=== PATIENT | female | born 1965 | race Hispanic/Latino ===

== ENCOUNTER 2021-08-11 16:18 | Emergency (ER) | payer SELFPAY ==
--- NOTE | ~2021-08-11 | XR_ITS ---
EXAMINATION: XR chest 2V DATE: 08/11/2021 17:19 INDICATION: Fever and body aches TECHNIQUE: PA and lateral views of the chest are obtained. COMPARISON: None available FINDINGS: The lungs are free of acute opacities. There is no pleural effusion or pneumothorax. The ca rdiomediastinal silhouette is normal. There is moderate thoracic spondylosis. IMPRESSION: 1. No acute cardiopulmonary abnormality. Reviewed, dictated and finalized at location A.
[2021-08-11 16:48] VITALS: BP 131/64; PULSE 79; RESP 14; TEMP 37.2; O2SAT 99
--- NOTE | 2021-08-11 16:51 | ECG_ITS ---
Measurements Intervals [place] Rate: 77 P: 31 TN: 171 QRS: -15 QRSD: 89 T: 28 QT: 347 QTc: 395 Interpretive Statements SINUS RHYTHM INCOMPLETE RIGHT BUNDLE BRANCH BLOCK BORDERLINE T WAVE ABNORMALITY- ANTERIOR LEADS BORDERLINE ECG Electronically Signed On 08-11-2021 17:02:45 CDT by Kory Barcenas D.O.
[2021-08-11 17:07] LABS: Basophils Percent Auto 0.3 % (0.2-1.2); Eosinophils Percent Auto 0.5 % (0-4.4); Hematocrit 42.9 % (37.0-47.0); Hemoglobin 14.6 g/dL (12.0-15.0); Immature Granulocyte Absolute 0.02 K/mm3 (0.00-0.031); Immature Granulocyte Percent A 0.3 % (0-0.5); Lymphocytes Absolute Auto 0.98 K/mm3 (0.9-3.2); Lymphocytes Percent Auto 16.2 % (18.3-44.2); Mean Corpuscular Hemoglobin 31.5 pg (26-34); Mean Corpuscular Volume 92.5 fl (80-100); Mean Platelet Volume 10.3 fl (7.4-10.4); Monocytes Absolute Auto 0.3 K/mm3 (0.1-0.6); Monocytes Percent Auto 4.5 % (2.6-8.5); Neutrophils Absolute Auto 4.7 K/mm3 (1.3-6.7); Neutrophils Percent Auto 78.2 % (45.5-73.1); Platelet Count Result 238 k/mm3 (150-375); Red Blood Count 4.64 M/mm3 (4.2-5.4); Red Cell Distribution Width 12.4 % (11.5-14.5); White Blood Count 6.1 K/mm3 (4.5-10.0)
[2021-08-11 17:18] LABS: INR 0.9; Prothrombin Time 12.1 Seconds (11.1-14.7)
[2021-08-11 17:19] LABS: Partial Thromboplastin Time 26.2 SECONDS (22.3-36.8)
[2021-08-11 17:26] LABS: Anion Gap 7 mmol/L (8-16); Blood Urea Nitrogen 9 mg/dL (7-17); Carbon Dioxide 28 mmol/L (22-30); Chloride 101 mmol/L (98-107); Estimated CRCL calculation 85 ml/min; Estimated Glomerular Filt Rate > 60; Glucose 122 mg/dL (65-110); Sodium 136 mmol/L (137-145)
[2021-08-11 17:38] LABS: Troponin I < 0.012 ng/mL (0.000-0.034)
[2021-08-11 17:43] VITALS: BP 135/80; PULSE 80; RESP 18; O2SAT 99
[2021-08-11] MEDS: LACTATED RINGERS 1,000 ML 999 ML IV CONT (18:27)
[2021-08-11] MEDS: PROCHLORPERAZINE EDISYLATE 10 MG/2 ML VIAL IV PUSH (18:27)
[2021-08-11] MEDS: KETOROLAC 30 MG/ML VIAL (*BKC) IV PUSH (18:27)
[2021-08-11 19:35] LABS: Add Urine Microscopic? NO; Appearance Urine Clear (Clear); Bilirubin Urine Negative (Negative); Blood Urine Negative (Negative); Color Urine Yellow (Yellow); Glucose Urine UA Negative (Negative); Ketones Urine Negative (Negative); Leukocyte Esterase Ur Negative LEU/UL (Negative); Nitrate Urine Negative (Negative); Protein Urine Negative (Negative); Specific Grav Ur 1.011 (1.001-1.035); Urobilinogen Urine Negative mg/dL (<2.0)
--- NOTE | 2021-08-11 19:51 | ED.HA ---
HPI - Headache General Chief Complaint: Headache Stated Complaint: FEVER, VOMITING, HERR Time Seen by Provider: 08/11/21 17:56 Source: patient Mode of arrival: ambulatory Limitations: no limitations History of Present Illness HPI Narrative: 56-year-old female Complains of a 1 day history of body aches, chills, headache, and subjective fevers No cough no shortness of breath She does not have nausea vomiting or diarrhea nor does she have dysuria or hematuria No neck pain, stiff neck and no sinus fullness or congestion or sore throat She has had a Covid vaccination Related Data Allergies Allergy/AdvReac Type Severity Reaction Status Date / Time No Known Allergies Allergy Verified 08/11/21 18:13 Review of Systems Review of Systems: All systems reviewed & are unremarkable except as noted in HPI and below Constitutional: Constitutional: Reports no additional constitutional complaints, Denies chills, Reports fatigue, Reports fever(s) and Denies headache(s) Eyes: Eyes: Reports no additional eye complaints, Denies change in vision and Denies photophobia ENT: Denies headache(s), Denies nasal congestion and Denies sore throat Cardiovascular: Cardiovascular: Denies chest pain and Denies dyspnea Respiratory: Respiratory: Denies cough and Denies dyspnea Gastrointestinal: Gastrointestinal: Denies abdominal pain, Denies diarrhea and Denies vomiting Genitourinary: Genitourinary: Denies hematuria, Denies urinary frequency and Denies dysuria Musculoskeletal: Musculoskeletal: Reports myalgias, Denies deformity, Denies arthralgias, Denies joint swelling and Denies numbness Integumentary/Breasts: Skin/Breast: Denies rash and Denies wounds Neurologic: Denies headache(s), Denies focal weakness and Denies numbness Psychiatric: Psychiatric: Reports no additional psychiatric complaints Endocrine: Endocrine: Reports no additional endocrine complaints Hematologic/Lymphatic: Hematologic/Lymphatic: Reports no additional hematologic/lymphatic complaints Allergic/Immunologic: Allergic/Immunologic: Reports no additional allergic/immunologic complaints Exam Const: General: cooperative, healthy appearing, no acute distress and alert Orientation/consciousness: patient oriented x3 (alert) HENMT: Head: normal to inspection, normocephalic, atraumatic, no contusions, no hematomas and no lacerations Ears: external ears normal and TM's normal bilaterally General nose exam: no epistaxis Throat: posterior oropharynx normal Other: Couple of pimples on the right cheek from rosacea Eyes: Conjunctivae: conjunctivae normal EOM: EOMs intact bilaterally Neck: Neck: normal visual inspection, no lymphadenopathy, supple and no JVD Other: Supple Resp: Effort & Inspection: normal respiratory effort and not labored Auscultation: clear to auscultation bilaterally and other (BS =) Cardio: Rate: regular rate Rhythm: regular rhythm Heart sounds: no murmurs GI: GI Palp: Yes Soft to palpation, No Tenderness to palpation present (GI), No Guarding due to palpation present (GI) and No Rebound tenderness present : General: Yes CVA tenderness (Right side) Skin: General skin exam: normal color and no rashes or lesions noted Neuro: General: patient oriented x3 (alert) and moves all extremities Speech: normal speech Extrem: General: normal to inspection and no pedal edema Psych: Affect: normal affect Course Course Emergency Course: Work-up unremarkable Much better after fluids and meds and reports that she feels fine and is ready to go Vital Signs Vital signs: Vital Signs Temperature 37.2 C 08/11/21 16:48 Pulse Rate 79 08/11/21 16:48 Respiratory Rate 14 08/11/21 16:48 Blood Pressure 131/64 08/11/21 16:48 Pulse Oximetry 99 08/11/21 16:48 Temperature 37.2 C 08/11/21 16:48 Pulse Rate 80 08/11/21 17:43 Respiratory Rate 18 08/11/21 17:43 Blood Pressure 135/80 08/11/21 17:43 Pulse Oximetry 99 08/11/21 17:43
[2021-08-11 21:15] VITALS: BP 140/76; PULSE 80; RESP 16; O2SAT 99
[2021-08-12 19:34] LABS: SARS-CoV-2 RNA PCR Negative
== END 2021-08-11 21:16 | disposition home or self-care (01) ==
PROVIDERS: Emergency Provider Emergency Medicine
DX: R51.9 Headache, unspecified (principal); B34.9 Viral infection, unspecified; Z20.822 Contact with and (suspected) exposure to COVID-19
CPT/HCPCS: 36415; 71046; 80048; 81003; 84484; 85025; 85610; 85730; 87804; 93005; 96361; 96374; 96375; 99284; C9803; J0780; J1885; J7120; U0003; U0005

== ENCOUNTER 2023-06-06 08:55 | Outpatient (CLI) | payer OTHER, SELFPAY ==
--- NOTE | ~2023-06-06 | MM_ITS ---
EXAMINATION: MM stereotactic bx LT, MM post biopsy diagnostic LT, MM stereotactic specimen LT DATE: 06/06/2023 10:50 (accession [id number]), 06/06/2023 10:51 (accession [id number]), 06/06 10:50 (accession [id number]) INDICATION: Indeterminate calcifications of the left breast. Stereotactic core biopsy is requested ev aluate for malignancy. TECHNIQUE AND FINDINGS: The risks and potential benefits of the procedure were discussed with the patient including bleeding and infection. A time out was performed to verify the patient's name, date of and site of proce dure to be performed. The patient was placed in the prone position with the left breast in lateral me dial compression, and the area of interest was localized and targeted utilizing digital imaging with stereotaxis. After sterile preparation of the skin, 2 cc of 1% lidocaine were utilized for local anesthesia at the skin puncture site and 15 of 1% lidocaine with epinephrine were utilized for deeper local anesthesia about the biopsy site. A 9G [employer] vacuum assisted biopsy needle was advanced to the level of the jeremias cification of interest from a lateral approach utilizing stereotactic guidance and a total of six tis claudia core biopsies were obtained. A specimen radiograph demonstrates that the calcifications of interest are included within the tissue cores. A tissue marker clip was then placed at the biopsy site. The needle was removed and hemostas is was achieved. A sterile bandage was applied. The patient tolerated procedure well and there was no evidence of immediate complication. The patient was given verbal instructions to return to the Emerg ency Department in the event of severe breast pain or rapid breast enlargement. Tissue cores were sub mitted to surgical pathology for histologic analysis. A 2-view left unilateral digital mammogram was obtained post procedure and this demonstrates that the tissue marker approximately 2 cm lateral to the calcifications of interest along the biopsy tract. IMPRESSION: 1. Successful stereotactic biopsy of calcifications in the upper outer quadrant of the left breast, f ollowed by tissue marker clip placement. Postbiopsy mammogram demonstrates the tissue marker approxim ately 2 cm lateral to the calcifications of interest along the biopsy tract. Reviewed, dictated and finalized at location A. IMPRESSION: 1. Successful stereotactic biopsy of calcifications in the upper outer quadrant of the left breast, followed by tissue marker clip placement. Postbiopsy mammo gram demonstrates the tissue marker approximately 2 cm lateral to the calcifica tions of interest along the biopsy tract. IMPRESSION: 1. Successful stereotactic biopsy of calcifications in the upper outer quadrant of the left breast, followed by tissue marker clip placement. Postbiopsy mammo gram demonstrates the tissue marker approximately 2 cm lateral to the calcifica tions of interest along the biopsy tract.
== END 2023-06-06 08:56 | disposition home or self-care (01) ==
PROVIDERS: Visit Provider Nurse Practitioner Family
DX: C50.412 Malignant neoplasm of upper-outer quadrant of left female breast (principal)
CPT/HCPCS: 19081; 77065; 88305; 88342; 88360; A4648

== ENCOUNTER 2025-04-14 15:30 | Emergency (ER) | payer OTHER, SELFPAY ==
[2025-04-14 15:38] VITALS: BP 113/78; PULSE 72; RESP 16; TEMP 37.1; O2SAT 100
--- NOTE | 2025-04-14 16:22 | ED_ITS ---
HPI - Back Pain/Injury General Chief Complaint: Back Pain/Injury Stated Complaint: LOW BACK PAIN/NAUSEA Time Seen by Provider: 04/14/25 16:10 Source: patient and RN notes reviewed Mode of arrival: ambulatory Limitations: no limitations History of Present Illness HPI Narrative: 59-year-old female presents Express Care complaining of to lower back pain x3 days. Patient denies any apparent injury the patient states she did dance a lot the day prior to developing the pain. Patient reports the pain is aching and stabbing sensation followed by occasional muscle spasms. Patient states the pain is nonradiating. Patient states the pain is worse with twisting of her back or bending over at the waist. Patient denies any urinary symptoms, vaginal bleeding, vaginal discharge, abdominal pain, saddle anesthesia, weakness, loss of bowel or bladder function, or fevers. Patient states when the muscle spasms occur as she gets nausea but has not yet vomited. Denies any diarrhea. Patient reports having a history of a left-sided mastectomy but denies any other significant past medical history. Patient has been taking Tylenol for pain with some relief. Related Data Home Medications ?Medication ?Instructions ?Recorded ?Confirmed ?Last Taken ?Type atorvastatin 10 mg tablet 10 mg PO DAILY 02/13/22 Unknown History Allergies Allergy/AdvReac Type Severity Reaction Status Date / Time No Known Allergies Allergy Verified 04/14/25 15:51 Review of Systems Review of Systems: CONSTITUTIONAL: Denies fever, chills, or sweats. EYES: Denies visual changes, redness, or discharge. ENT: Denies rhinorrhea, congestion, sore throat, or otalgia. CARDIOVASCULAR: Denies chest pain, palpitations, or edema. RESPIRATORY: Denies cough or dyspnea. GASTROINTESTINAL: Denies abdominal pain,, vomiting, or diarrhea. Positive for nausea GENITOURINARY: Denies dysuria or hematuria. SKIN: Denies rash or itching. MUSCULOSKELETAL: Denies joint pain, saddle anesthesia, or myalgia. Positive for back pain and muscle spasms. NEUROLOGIC: Denies headache, numbness, loss of bowel or bladder function, or weakness. PSYCHIATRIC: Denies anxiety or depression. All other systems reviewed are negative, except as documented in HPI. [facility] Past Medical History Medical History GERD (gastroesophageal reflux disease) Surgical History Surgical History Delivery by section Family History Family History Other Bladder cancer Diabetes mellitus Hypertension Social History Social History Smoking status: Never smoker Alcohol intake: current Alcohol use details: socially Substance use: never Substance use type: does not use Living arrangements: with family Occupation/Education: unemployed Gender identity (if verbalized by the patient): Female Comments At the time of my signature, I reviewed and agree with the nursing past medical, surgical, social, and family history. There is no relevant family history pertinent to the patient complaint. Exam Narrative: GENERAL: This is a well-nourished, well-developed adult, in no apparent distress. They are non ill-appearing, nontoxic appearing. HEAD: normocephalic, atraumatic. EYES: Sclera clear/white. Conjunctiva normal. Vision is grossly intact. Extraocular movements intact EARS: External ears normal,Hearing grossly intact. NOSE: External nose normal THROAT: Mucous membranes moist NECK: Neck supple, non-tender without lymphadenopathy, masses or thyromegaly. Cervical point tenderness, step-offs, or crepitus. CARDIOVASCULAR: Regular rate and rhythm without murmurs, gallops, or rubs. RESPIRATORY: Clear to auscultation. Breath sounds equal bilaterally. No wheezes, rales, or rhonchi. GASTROINTESTINAL: Abdomen soft, non-tender, nondistended. Bowel sounds are active. No hepato-splenomegaly, or palpable masses. No guarding or rigidity. No rebound tenderness SKIN: warm, Dry, intact with no suspicious lesions or rash, good texture and turgor. NEURO: awake, alert, and oriented to person, place and time. There were no obvious focal neurologic abnormalities. EXTREMITIES: No joint tenderness, effusion, or edema noted. BACK: Mild tenderness to palpation to the mid to lower back bilaterally. No swelling, redness, or bruising. Pain is elicited with twisting of the spine left or right or bending over at the waist. No thoracic or lumbar point tenderness, step-offs, or crepitus. No CVA tenderness. Course Course Emergency Course: Portions of this record may have been created with voice recognition software Level of Care: Express Care Visit Vital Signs Vital signs: Vital Signs Temperature 98.8 F 04/14/25 15:38 Pulse Rate 72 04/14/25 15:38 Respiratory Rate 16 04/14/25 15:38 Blood Pressure 113/78 04/14/25 15:38 Pulse Oximetry 100 04/14/25 15:38 Temperature 98.8 F 04/14/25 15:38 Pulse Rate 72 04/14/25 15:38 Respiratory Rate 16 04/14/25 15:38 Blood Pressure 113/78 04/14/25 15:38 Pulse Oximetry 100 04/14/25 15:38 Reviewed MDM - Back Pain/Injury MDM Narrative Medical decision making narrative: Urine dipstick negative for any evidence of infection. Urine cultures pending. Symptoms are consistent with a musculoskeletal injury of her back. Patient has no CVA tenderness, saddle anesthesia, weakness, loss of bowel bladder function. Will prescribe patient methocarbamol for muscle relaxers and will prescribe Zofran as needed for nausea. Discussed physical exam findings. Advised supportive measures and signs/symptoms to go to the ER. Pt is appropriate for outpt treatment and f/u. Differential Diagnosis Differential diagnosis: Likely lumbar radiculopathy, strain of lumbar region, pyelonephritis and other (Urinary tract infection) Critical Care Time Critical Care Time Critical Care Time: No Discharge Plan Discharge Clinical Impression: Strain of lumbar region Patient Disposition: Home Condition: Stable Instructions: Back Pain (ED) Additional Instructions: Urine dipstick was negative for any evidence of infection. A urine culture will be sent off and if it is positive for bacteria you will be contacted started on appropriate antibiotics. It is likely symptoms are related to a muscleskeletal strain. Take the muscle relaxer as directed. Do not drive or operate heavy machine, or work while taking the medication as it can make you drowsy. Use the lidocaine patches as directed. Take Zofran as needed for nausea. You may take Tylenol or ibuprofen as needed Please follow-up with your primary care provider if pain persist Rest. Avoid pushing, pulling, lifting --running or excessive walking-- or anything that worsens the symptoms You may try stretching your lower back or doing spinal decompression to help with symptoms. Go to the emergency department if you develop any numbness or tingling to your groin, weakness in your legs, or any loss of bowel or bladder function, vomiting, fevers, urinary symptoms, or any other concerns. Patient Language: Georgian Prescriptions: New methocarbamol 750 mg tablet 750 mg PO TID Qty: 20 0RF ondansetron 4 mg tablet,disintegrating 4 mg PO Q8H PRN (Reason: nausea and vomiting) Qty: 12 0RF No Action atorvastatin 10 mg tablet 10 mg PO DAILY fluconazole [Diflucan] 150 mg tablet 150 mg PO Q72H Qty: 2 0RF Rx Instructions: as a single dose Follow-up/Referrals: Bo,Radha Baldwin, [employer] [Primary Care Provider] - Time of Disposition: 16:18
[2025-04-14 16:28] LABS: EDUAAPPEAR Clear; EDUABILI Negative (Negative); EDUABLOOD Negative (Negative); EDUACOLOR1 Yellow; EDUAGLUCOSE Negative (Negative); EDUAKETONE Negative (Negative); EDUALEUKO Negative (Negative); EDUANITRATE Negative (Negative); EDUAPH 5.5; EDUAPROTEIN Negative (Negative); EDUASPGRAVITY 1.025; EDUAUROBILI 0.2
== END 2025-04-14 16:29 | disposition home or self-care (01) ==
DX: S39.012A Strain of muscle, fascia and tendon of lower back, initial encounter (principal); X58.XXXA Exposure to other specified factors, initial encounter; Y93.41 Activity, dancing; K21.9 Gastro-esophageal reflux disease without esophagitis
CPT/HCPCS: 81003; 87086; 99213; G0463